=== PATIENT | female | born 2000 | race Caucasian/White ===

== ENCOUNTER 2023-01-17 15:27 | Emergency (ER) | payer SELFPAY ==
[~2023-01-17] VITALS: Ht 160 cm; Wt 92.0 kg
--- NOTE | 2023-01-17 15:49 | ED Cough/URI ---
General Chief Complaint: Respiratory Problems Stated Complaint: CONGESTION - COUGH - SOA Source: patient Exam Limitations: no limitations History of Present Illness Date Seen by Provider: Jan 17, 2023 Time Seen by Provider: 15:46 Initial Comments Patient is a 22-year-old female goes by Maximus who presents to ED for shortness of breath, wheezing and chest pain and tightness. She states over the past month or so she has been feeling short of breath. Short of breath has been worse over the past week. She noted around the evening time she started to get increasing short of breath with wheezing. She cannot relate this to exertion or with lying down. She has had some chest tightness but no specific chest pain an d only occurs with the shortness of breath. She denies of any nausea, vomiting, diarrhea. No history of asthma. She does vape. Not on any type of medication at this time. She denies of any abdominal pain, visual change, sore throat, ear pain, nasal congestion. She does report bilateral temporal headache and describes it as a migraine. Has been taking ibuprofen for the past 2 days for the migraine with no improvement. Denies of any recent travels or surgeries. Denies of any leg pain or swelling, dysuria, hematuria, Allergies and Home Medications Allergies Coded Allergies: No Known Drug Allergies (Unverified , 01/17/23) Patient Home Medication List Home Medication List Reviewed: Yes Albuterol Sulfate (Ventolin Hfa) 1 Puff Puff, 2 PUFF INH Q4H Prescribed by: GEGE LYNN on 01/17/23 6056 Review of Systems Review of Systems Constitutional: No chills, No diaphoresis EENTM: No ear pain, No blurred vision, No double vision Respiratory: No cough Cardiovascular: chest pain Gastrointestinal: No abdominal pain, No diarrhea, No nausea, No vomiting Genitourinary: No decreased output, No discharge Musculoskeletal: No back pain, No joint pain Skin: No change in color All Other Systems Reviewed Negative Unless Noted: Yes Physical Exam Vital Signs - First Documented 01/17/23 15:39 Temp 37.0 Pulse 101 Resp 20 B/P (MAP) 127/99 (108) Pulse Ox 97 O2 Delivery Room Air Capillary Refill : Height: '" Weight: lbs. oz. kg; BMI Method: General Appearance: WD/WN, no apparent distress Eyes: Bilateral Eye Normal Inspection, Bilateral Eye PERRL, Bilateral Eye EOMI HEENT: PERRL/EOMI, normal ENT inspection, TMs normal, pharynx normal Neck: non-tender, full range of motion, supple, normal inspection Respiratory: chest non-tender, lungs clear, normal breath sounds, no respiratory distress Cardiovascular: regular rate, rhythm, no edema, no gallop, no JVD Gastrointestinal: normal bowel sounds, non tender, soft, no organomegaly Extremities: normal range of motion, non-tender, normal inspection, no pedal edema Neurologic/Psychiatric: manager universal II-XII nml as tested, no motor/sensory deficits, alert, normal mood/affect, oriented x 3 Skin: normal color, warm/dry Progress/Results/Core Measures Suspected Sepsis SIRS Temperature: Pulse: Respiratory Rate: Laboratory Tests 01/17/23 16:01: White Blood Count 10.0 Blood Pressure / Mean: Laboratory Tests 01/17/23 16:01: Creatinine 0.84, Platelet Count 309, Total Bilirubin 0.7 Results/Orders Lab Results Laboratory Tests Test 01/17/23 15:40 01/17/23 16:01 Range/Units Influenza Type A (RT-PCR) Not Detected Not Detecte Influenza Type B (RT-PCR) Not Detected Not Detecte SARS-CoV-2 RNA (RT-PCR) Not Detected Not Detecte White Blood Count 10.0 4.3-11.0 10^3/uL Red Blood Count 4.78 3.80-5.11 10^6/uL Hemoglobin 14.4 11.5-16.0 g/dL Hematocrit 44 35-52 % Mean Corpuscular Volume 92 80-99 fL Mean Corpuscular Hemoglobin 30 25-34 pg Mean Corpuscular Hemoglobin Concent 33 32-36 g/dL Red Cell Distribution Width 12.7 10.0-14.5 % Platelet Count 309 130-400 10^3/uL Mean Platelet Volume 11.1 9.0-12.2 fL Immature Granulocyte % (Auto) 0 % Neutrophils (%) (Auto) 54 42-75 % Lymphocytes (%) (Auto) 32 12-44 % Monocytes (%) (Auto) 6 0-12 % Eosinophils (%) (Auto) 8 0-10 % Basophils (%) (Auto) 1 0-10 % Neutrophils # (Auto) 5.4 1.8-7.8 10^3/uL Lymphocytes # (Auto) 3.2 1.0-4.0 10^3/uL Monocytes # (Auto) 0.6 0.0-1.0 10^3/uL Eosinophils # (Auto) 0.8 H 0.0-0.3 10^3/uL Basophils # (Auto) 0.1 0.0-0.1 10^3/uL Immature Granulocyte # (Auto) 0.0 0.0-0.1 10^3/uL Sodium Level 139 135-145 MMOL/L Potassium Level 3.7 3.6-5.0 MMOL/L Chloride Level 107 98-107 MMOL/L Carbon Dioxide Level 21 21-32 MMOL/L Anion Gap 11 5-14 MMOL/L Blood Urea Nitrogen 10 7-18 MG/DL Creatinine 0.84 0.60-1.30 MG/DL Estimat Glomerular Filtration Rate 99 BUN/Creatinine Ratio 12 Glucose Level 80 70-105 MG/DL Calcium Level 9.2 8.5-10.1 MG/DL Corrected Calcium 8.5-10.1 MG/DL Magnesium Level 1.8 1.6-2.4 MG/DL Total Bilirubin 0.7 0.1-1.0 MG/DL Aspartate Amino Transf (AST/SGOT) 17 5-34 U/L Alanine Aminotransferase (ALT/SGPT) 29 0-55 U/L Alkaline Phosphatase 81 40-136 U/L Troponin I < 0.028 <0.028 NG/ML Total Protein 7.7 6.4-8.2 GM/DL Albumin 4.8 H 3.2-4.5 GM/DL Serum Test, Qualitative NEGATIVE NEGATIVE My Orders Orders - ROBLES GRAHAM PA Covid 19 Inhouse Test (01/17/23 15:34) Influenza A And B By Pcr (01/17/23 15:34) Ekg Tracing (01/17/23 15:45) Cbc With Automated Diff (01/17/23 15:45) Comprehensive Metabolic Panel (01/17/23 15:45) Magnesium (01/17/23 15:45) Chest 1 View, Ap/Pa Only (01/17/23 15:45) Hcg,Qualitative Serum (01/17/23 15:45) Troponin I Yuliet (01/17/23 16:40) Vital Signs/I&O 01/17/23 01/17/23 15:39 16:53 Temp 37.0 Pulse 101 72 Resp 20 20 B/P (MAP) 127/99 (108) 120/78 Pulse Ox 97 95 O2 Delivery Room Air Room Air Capillary Refill : ECG Comment Sinus rhythm with marked sinus arrhythmia, possible left atrial lodgment, possible right ventricular conduction delay, 80 bpm, QRS duration 92 MS, QTc 394 MS Departure Communication (PCP) Patient is a 22-year-old female presents ED with shortness of breath for the past week with wheezing more notable at night. No known cardiac history's. History of vaping. No history of asthma or allergies. Patient on arrival with stable vital signs. No respiratory distress. Lung sounds were clear throu ghout. No recent travels or surgeries. Not currently on medication. She does not appear toxic. Goes by Maximus. No specific chest pain. Differential diagnosis, reactive airway disease, pneumonia, viral syndrome, pericarditis, anxiety, ACS. EKG was obtained which showed normal sinus rhythm with marked sinus arrhythmia. No ST elevation or pression. CBC, CMP was grossly unremarkable. Troponin was unremarkable. Chest x-ray was negative for pneumonia, pneumothorax. Did not note any wheezing on arrival. Added COVID influenza which was negative. Clinically does not appear cardiac in nature. Low heart score. No evidence of murmur. Denies syncope or lightheaded with exertion suspect that this is more reactive airway. Suggest stopping the vaping. We will provide an albuterol inhaler as needed. Suggest starting Zyrtec. Recommend follow-up your PCP in 2 to 3 days for reevaluation. Patient does not appear toxic or septic. If any worsening symptoms such as shortness of breath or wheezing to return back to ED. Impression Primary Impression: Dyspnea Disposition: 01 HOME, SELF-CARE Condition: Stable Departure-Patient Inst. Decision time for Depature: 16:47 Referrals: [facility]CHELSEA MCMAHON MD NO,LOCAL PHYSICIAN (PCP) Primary Care Physician Patient Instructions: Shortness of breath (dyspnea) Add. Discharge Instructions: Recommend stopping vaping. Albuterol for shortness of breath and wheezing. If any worsening symptoms return back to ED. Provided cardiology outpatient follow-up All discharge instructions reviewed with patient and/or family. Voiced understanding. Scripts Albuterol Sulfate (VENTOLIN HFA) 1 Puff Puff 2 PUFF INH Q4H for Wheezing, #1 EA 1 PUFF = 90 MCG Prov: ROBLES GRAHAM 01/17/23 ROBLES GRAHAM Jan 17, 2023 15:49
[2023-01-17 16:16] LABS: BASOPHILS # (AUTO) 0.1 10^3/uL (0.0-0.1); BASOPHILS % (AUTO) 1 % (0-10); EOSINOPHILS # (AUTO) 0.8 10^3/uL (0.0-0.3); EOSINOPHILS % (AUTO) 8 % (0-10); HEMATOCRIT 44 % (35-52); HEMOGLOBIN 14.4 g/dL (11.5-16.0); LYMPHOCYTES # (AUTO) 3.2 10^3/uL (1.0-4.0); LYMPHOCYTES % (AUTO) 32 % (12-44); MEAN CORPUSCULAR HEMOGLOBIN 30 pg (25-34); MEAN CORPUSCULAR HGB CONC 33 g/dL (32-36); MEAN CORPUSCULAR VOLUME 92 fL (80-99); MEAN PLATELET VOLUME 11.1 fL (9.0-12.2); MONOCYTES # (AUTO) 0.6 10^3/uL (0.0-1.0); MONOCYTES % (AUTO) 6 % (0-12); NEUTROPHILS # (AUTO) 5.4 10^3/uL (1.8-7.8); NEUTROPHILS % (AUTO) 54 % (42-75); PLATELET COUNT 309 10^3/uL (130-400)
--- NOTE | 2023-01-17 16:17 | Diagnostic Imaging Report ---
EXAMINATION: Portable erect AP chest at 1600 hours. INDICATION: Shortness of breath. COMPARISON: There are no prior studies available for comparison. FINDINGS: The heart size is within normal limits. There is an area of increased density in the right infrahilar region. I suspect that this is more likely due to crowding of the bronchovascular markings than to pneumonia/atelectasis. The lungs are otherwise generally clear. There is no sign of failure, pneumonia or pleural effusion to indicate an acute abnormality. The mediastinum is not widened. The osseous structures are intact. IMPRESSION: 1. There is no evidence for an acute cardiopulmonary abnormality. 2. If clinical concern regarding an underlying abnormality persists, then a follow-up PA and lateral chest would be recommended for further study. Dictated by: Dictated on workstation # [id number]
[2023-01-17 16:33] LABS: ALANINE AMINOTRANSFERASE 29 U/L (0-55); ALBUMIN 4.8 GM/DL (3.2-4.5); ALKALINE PHOSPHATASE 81 U/L (40-136); BILIRUBIN,TOTAL 0.7 MG/DL (0.1-1.0); BUN/CREATININE RATIO 12; CALCIUM 9.2 MG/DL (8.5-10.1); CARBON DIOXIDE 21 MMOL/L (21-32); CHLORIDE 107 MMOL/L (98-107); CREATININE SERUM 0.84 MG/DL (0.60-1.30); GFR ESTIMATED 99; GLUCOSE 80 MG/DL (70-105); MAGNESIUM 1.8 MG/DL (1.6-2.4); POTASSIUM 3.7 MMOL/L (3.6-5.0); SODIUM 139 MMOL/L (135-145); TOTAL PROTEIN 7.7 GM/DL (6.4-8.2)
[2023-01-17] MEDS ORDERED: RT-ALBUINH INH (16:49)
[2023-01-17 16:53] VITALS: BP 120/78
== END 2023-01-17 16:54 | disposition home or self-care (01) ==
LOC: ER 15:31
DX: R06.00 Dyspnea, unspecified (principal); Z20.822 Contact with and (suspected) exposure to COVID-19
CPT/HCPCS: 36415; 71045; 80053; 83735; 84484; 84703; 85025; 87636; 93005